=== PATIENT | male | born 1990 | race Hispanic/Latino ===

== ENCOUNTER 2017-12-17 20:42 | Emergency (ER) | payer OTHER | END 2017-12-18 00:26 | disposition home or self-care (01) | LOC: M ED 20:42 | DX: S16.1XXA Strain of muscle, fascia and tendon at neck level, initial encounter (principal); S06.0X0A Concussion without loss of consciousness, initial encounter; V43.52XA Car driver injured in collision with other type car in traffic accident, initial encounter; Y92.410 Unspecified street and highway as the place of occurrence of the external cause; Y93.9 Activity, unspecified | CPT/HCPCS: 70450 ==

== ENCOUNTER 2018-12-06 18:41 | Emergency (ER) | payer OTHER ==
[~2018-12-06] VITALS: Ht 180.3 cm; Wt 100.0 kg
[~2018-12-06 18:41] MED LIST: TYLE500T78 PO; ZOFR4TAB14 PO
[2018-12-06] MEDS ORDERED: MAXA10TA14 PO (18:48)
[2018-12-06 19:29] LABS: BASO # 0.1 10^3/uL (0.0-0.2); BASO % 0.8 % (0.0-1.0); EOS # 0.3 10^3/uL (0.0-0.50); EOS % 2.7 % (0.0-3.0); HEMATOCRIT 45.1 % (42.0-52.0); HEMOGLOBIN 15.1 g/dl (13.5-17.5); LYMPH # 3.3 10^3/uL (1.5-6.5); LYMPH % 34.3 % (24.0-44.0); MEAN CORPUSCULAR HEMOGLOBIN 28.8 pg (27.0-33.0); MEAN CORPUSCULAR HGB CONC 33.5 g/dl (32.0-36.5); MEAN CORPUSCULAR VOLUME 86.1 fl (80.0-96.0); MONO # 0.7 10^3/uL (0.0-0.8); MONO % 7.3 % (0.0-5.0); NEUTROPHILS # 5.2 10^3/uL (1.8-7.7); NEUTROPHILS % 54.6 % (36.0-66.0); PLATELET COUNT, AUTOMATED 294 10^3/uL (150-450); RED BLOOD COUNT 5.24 10^6/uL (4.30-6.10); WHITE BLOOD COUNT 9.5 10^3/uL (4.0-10.0)
--- NOTE | 2018-12-06 19:50 | REP ---
CHEST, TWO VIEWS: There is no evidence of acute infiltrate. No pleural effusion is seen. The heart is normal in size. The mediastinal silhouette is unremarkable. The visualized osseous structures are intact. IMPRESSION: No acute pulmonary disease. Electronically Signed by Khari Silva MD 12/07/2018 09:11 A
[2018-12-06 20:01] LABS: BLOOD UREA NITROGEN 12 MG/DL (7-18); CALCIUM LEVEL 8.7 MG/DL (8.5-10.1); CARBON DIOXIDE LEVEL 31 MEQ/L (21-32); CHLORIDE LEVEL 105 MEQ/L (98-107); CK-MB VALUE MASS < 1.0 NG/ML (<3.6); CPK CREATINE PHOSPHOKINASE 145 U/L (39-308); CREATININE FOR GFR 1.02 MG/DL (0.70-1.30); GLOMERULAR FILTRATION RATE > 60.0 (>60); GLUCOSE, FASTING 100 MG/DL (70-100); MB/CK RELATIVE INDEX 0.69 (< OR =4); SODIUM LEVEL 141 MEQ/L (136-145); TROPONIN I < 0.02 NG/ML (< 0.10)
[2018-12-06 22:25] VITALS: BP 119/72
[2018-12-06] MEDS ORDERED: KETO10TAB PO (22:29)
--- NOTE | 2018-12-08 00:41 | ECGEPIP ---
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
== END 2018-12-06 22:34 | disposition home or self-care (01) ==
LOC: M ED 18:41
DX: M94.0 Chondrocostal junction syndrome [Tietze] (principal); I45.10 Unspecified right bundle-branch block; R11.0 Nausea; R51 Headache; F32.9 Major depressive disorder, single episode, unspecified; F43.10 Post-traumatic stress disorder, unspecified; Z82.49 Family history of ischemic heart disease and other diseases of the circulatory system; Z79.899 Other long term (current) drug therapy

== ENCOUNTER 2018-12-26 12:14 | Inpatient (IN) | payer OTHER ==
[~2018-12-26] VITALS: Ht 180.3 cm; Wt 96.4 kg
[~2018-12-26 12:14] MED LIST changes: +KETO10TAB PO; +MAXA10TA14 PO
[2018-12-26 12:53] LABS: HEMATOCRIT 45.9 % (42.0-52.0); HEMOGLOBIN 15.7 g/dl (13.5-17.5); MEAN CORPUSCULAR HEMOGLOBIN 28.6 pg (27.0-33.0); MEAN CORPUSCULAR HGB CONC 34.2 g/dl (32.0-36.5); MEAN CORPUSCULAR VOLUME 83.8 fl (80.0-96.0); PLATELET COUNT, AUTOMATED 329 10^3/uL (150-450); RED BLOOD COUNT 5.48 10^6/uL (4.30-6.10)
[2018-12-26 13:28] LABS: ACETAMINOPHEN LEVEL < 2.0 UG/ML (10.0-30.0); ALBUMIN 4.1 GM/DL (3.2-5.2); ALT/SGPT 22 U/L (12-78); AMPHETAMINES LEVEL URINE NEGATIVE (NEGATIVE); BARBITURATES URINE NEGATIVE (NEGATIVE); BENZODIAZEPINES URINE NEGATIVE (NEGATIVE); BILIRUBIN,DIRECT 0.1 MG/DL (0.0-0.2); BILIRUBIN,TOTAL 0.3 MG/DL (0.2-1.0); BLOOD UREA NITROGEN 10 MG/DL (7-18); CALCIUM LEVEL 8.8 MG/DL (8.5-10.1); CANNABINOIDS URINE NEGATIVE (NEGATIVE); CARBON DIOXIDE LEVEL 26 MEQ/L (21-32); CHLORIDE LEVEL 106 MEQ/L (98-107); COCAINE METABOLITE URINE NEGATIVE (NEGATIVE); CREATININE FOR GFR 0.85 MG/DL (0.70-1.30); ETHYL ALCOHOL (ETHANOL) 0.005 % (0.000-0.010); GLOMERULAR FILTRATION RATE > 60.0 (>60); GLUCOSE, FASTING 93 MG/DL (70-100); METHADONE URINE NEGATIVE (NEGATIVE); OPIATES URINE NEGATIVE (NEGATIVE); PHENCYCLIDINE URINE NEGATIVE (NEGATIVE); POTASSIUM SERUM 3.9 MEQ/L (3.5-5.1); SALICYLATE LEVEL < 1.7 MG/DL (5.0-30.0); SODIUM LEVEL 140 MEQ/L (136-145); TOTAL PROTEIN 7.9 GM/DL (6.4-8.2)
[2018-12-26] MEDS ORDERED: MOM 30ML SUSPENSION UDC PO PRN (14:45)
[2018-12-26] MEDS ORDERED: ACETAMINOPHEN TAB 650MG DOSE (2X325MG) PO PRN (14:45)
[2018-12-26] MEDS ORDERED: MAALOX 30 ML SUSP *UDC PO PRN (14:45)
[2018-12-26] MEDS ORDERED: hydrOXYzine 50 MG TAB PO PRN (14:45)
[2018-12-26 17:47] VITALS: BP 116/78
[2018-12-27 06:13] VITALS: BP 114/59
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
[2018-12-27] MEDS: RIZATRIPTAN BENZOATE 10 MG TAB PO PRN (11:22)
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
[2018-12-27] MEDS ORDERED: ESCITALOPRAM OXALATE 10 MG TAB (LEXAPRO) PO ONE (12:30)
[2018-12-27] MEDS ORDERED: LEXA1TAB PO (12:59)
[2018-12-27] MEDS ORDERED: LUNE2TAB23 PO (12:59)
[2018-12-27] MEDS ORDERED: MAXA10TA14 PO (12:59)
[2018-12-27 18:19] VITALS: BP 133/84
--- NOTE | 2018-12-27 20:08 | ECGEPIP ---
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
[2018-12-27] MEDS: traZODone 50 MG TAB PO PRN (22:13)
[2018-12-28 06:35] VITALS: BP 119/63
[2018-12-28] MEDS: ESCITALOPRAM OXALATE 10 MG TAB (LEXAPRO) PO SCH (08:56)
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
[2018-12-28] MEDS: RIZATRIPTAN BENZOATE 10 MG TAB PO PRN (11:23)
[2018-12-28] MEDS: ONDANSETRON 4 MG ORAL DISINTEGRATING TAB (Q0162 PER 1MG) PO PRN (11:57)
[2018-12-28 18:00] VITALS: BP 116/62
[2018-12-29 06:00] VITALS: BP 121/57
[2018-12-29] MEDS: ESCITALOPRAM OXALATE 10 MG TAB (LEXAPRO) PO SCH (08:23)
[2018-12-29] MEDS: ONDANSETRON 4 MG ORAL DISINTEGRATING TAB (Q0162 PER 1MG) PO PRN (09:31)
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
[2018-12-29 18:01] VITALS: BP 138/68
[2018-12-29] MEDS: traZODone 50 MG TAB PO PRN (22:37)
[2018-12-30 06:15] VITALS: BP 114/55
[2018-12-30] MEDS: ESCITALOPRAM OXALATE 10 MG TAB (LEXAPRO) PO SCH (08:28)
[2018-12-30] MEDS: ONDANSETRON 4 MG ORAL DISINTEGRATING TAB (Q0162 PER 1MG) PO PRN (09:23)
[2018-12-30 18:35] VITALS: BP 122/79
[2018-12-30] MEDS ORDERED: traZODone 100 MG TAB PO PRN (20:15)
[2018-12-31 06:10] VITALS: BP 131/58
[2018-12-31] MEDS: ONDANSETRON 4 MG ORAL DISINTEGRATING TAB (Q0162 PER 1MG) PO PRN (08:19)
[2018-12-31] MEDS: ESCITALOPRAM OXALATE 10 MG TAB (LEXAPRO) PO SCH (08:19)
[2018-12-31 18:01] VITALS: BP 135/77
[2019-01-01 06:13] VITALS: BP 119/62
[2019-01-01] MEDS: ONDANSETRON 4 MG ORAL DISINTEGRATING TAB (Q0162 PER 1MG) PO PRN (08:04)
[2019-01-01] MEDS: ESCITALOPRAM OXALATE 10 MG TAB (LEXAPRO) PO SCH (08:04)
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
[2019-01-01] MEDS ORDERED: TRAZ10TA PO (09:05)
[2019-01-01] MEDS ORDERED: ESCI10TA2 PO (09:05)
--- NOTE | 2019-01-01 15:37 | MHIPN ---
DATE: 12/30/2018 The patient today states, "I am feeling better." He states that his mood is a 3 or 4 out of 10 where the closest to 10 is the most depressed. He is not suicidal. He said that he did not sleep last night so we will increase the trazodone to 100 mg at night. MENTAL STATUS EXAMINATION: He is alert and oriented times three. Eye contact is fair. Psychomotor activity is normal. There is no formal thought disorder noted. Mood is "better." Affect is constricted but appropriate to his mood. He is not psychotic, suicidal or homicidal. Concentration is fair. Memory good. Insight and judgment fair. DIAGNOSES: 1. Posttraumatic stress disorder (PTSD). 2. Major depressive disorder, recurrent. 3. History of traumatic brain injury. TREATMENT PLAN: At this point, we will continue to monitor the patient for continued elevation and stabilization of his mood and for continued resolution of any suicidal ideations. We will continue to titrate medications as indicated.
== END 2019-01-01 10:45 | disposition home or self-care (01) | DRG 882 ==
LOC: M ED 12:14 → M ED INP 14:45 → M PSY 16:40
PROVIDERS: ADMIT Psychiatry & Neurology Psychiatry; ATTEND Psychiatry & Neurology Psychiatry
DX: F43.10 Post-traumatic stress disorder, unspecified (principal); F33.1 Major depressive disorder, recurrent, moderate; Z87.820 Personal history of traumatic brain injury; Z79.899 Other long term (current) drug therapy; G47.00 Insomnia, unspecified; G43.709 Chronic migraine without aura, not intractable, without status migrainosus